=== PATIENT | female | born 1970 ===

== ENCOUNTER 2024-11-17 05:30 | Day surgery (SDC) | payer OTHER ==
[2024-11-10 09:41] VITALS: BP 149/82
[2024-11-10 10:09] LABS: HEMATOCRIT 38.3 % (36.0-45.00); HEMOGLOBIN 13.4 g/dL (12.0-15.00); MEAN CORPUSCULAR HGB CONC 34.9 g/dl (32.0-36.0); PLATELET COUNT 286 K/uL (150-450); RED BLOOD COUNT 4.61 M/uL (4.00-6.00); RED CELL DISTRIBUTION WIDTH 15.4 % (11.5-14.5)
[2024-11-10 10:30] LABS: PARTIAL THROMBOPLASTIN TIME 28.5 SECONDS (22.0-34.0); PROTHROMBIN TIME 10.9 SECONDS (9.0-11.5)
[2024-11-10 10:33] LABS: URINE APPEARANCE Clear; URINE BILIRRUBIN Negative (NEGATIVE); URINE BLOOD Negative; URINE COLOR Yellow; URINE GLUCOSE Negative (NEGATIVE); URINE KETONE Negative (NEGATIVE); URINE LEUKOCYTE Small; URINE NITRATE Negative; URINE PROTEIN Negative (NEGATIVE); URINE UROBILINOGEN 0.2 E.U./dl
[2024-11-10 10:38] LABS: URINE BACTERIA 1577.7 uL (0.0-1933); URINE EPITHELIAL CELLS 85.2 uL (0.0-38.8); URINE RBC 2.3 uL (0.0-20.8); URINE WBC 39.5 uL (0.0-23.2)
[2024-11-10 11:36] LABS: ALBUMIN 4.1 gm/dL (3.4-5.0); BILIRUBIN TOTAL 0.5 mg/dL (0.3-1.2); CALCIUM 8.9 mg/dL (8.5-10.1); CREATININE SERUM 0.66 mg/dL (0.55-1.02); GFR 94.04; GLOBULINA 3.6 G/DL (2.4-3.5); POTASSIUM 4.22 mEq/L (3.5-5.1); TOTAL PROTEIN 7.7 gm/dL (6.4-8.2)
[~2024-11-17] VITALS: Ht 172.7 cm; Wt 84.4 kg
[~2024-11-17 05:30] MED LIST: AMLODIPINE BESYL5 MG PO; SYNTHROID137 MCG PO
[2024-11-17] MEDS ORDERED: POVIDONE-IODINE 118 ML BOTT TOP ONE (07:37)
[2024-11-17] MEDS ORDERED: ONDANSETRON HCL 2 MG/ML VIAL IV ONE (09:30)
== END 2024-11-17 12:05 | disposition home or self-care (01) ==
LOC: CIR.AMB 05:30
PROVIDERS: ATTEND Obstetrics & Gynecology
DX: N95.0 Postmenopausal bleeding (principal); D25.0 Submucous leiomyoma of uterus